=== PATIENT | male | born 1970 | race African-American/Black ===

== ENCOUNTER 2018-11-14 00:31 | Emergency (ER) | payer MEDICAID ==
[~2018-11-14] VITALS: Ht 172.7 cm; Wt 64.0 kg
[2018-11-14 04:42] VITALS: BP 112/68
== END 2018-11-14 04:45 | disposition home or self-care (01) ==
LOC: ER 00:31
DX: R22.42 Localized swelling, mass and lump, left lower limb (principal); M25.572 Pain in left ankle and joints of left foot
CPT/HCPCS: 73610; 99283

== ENCOUNTER 2019-03-15 01:26 | Emergency (ER) | payer MEDICAID, OTHER ==
[~2019-03-15] VITALS: Ht 170.2 cm; Wt 59.7 kg
[2019-03-15 06:14] VITALS: BP 97/64
== END 2019-03-15 06:17 | disposition home or self-care (01) ==
LOC: ER 01:26
DX: S40.862A Insect bite (nonvenomous) of left upper arm, initial encounter (principal); S40.861A Insect bite (nonvenomous) of right upper arm, initial encounter; S80.862A Insect bite (nonvenomous), left lower leg, initial encounter; S80.861A Insect bite (nonvenomous), right lower leg, initial encounter; F12.10 Cannabis abuse, uncomplicated; F17.210 Nicotine dependence, cigarettes, uncomplicated; W57.XXXA Bitten or stung by nonvenomous insect and other nonvenomous arthropods, initial encounter; Y93.89 Activity, other specified; Y92.018 Other place in single-family (private) house as the place of occurrence of the external cause
CPT/HCPCS: 99282

== ENCOUNTER 2020-01-28 03:13 | Emergency (ER) | payer MEDICAID, OTHER ==
[~2020-01-28] VITALS: Ht 170.2 cm; Wt 69.0 kg
[2020-01-28] MEDS ORDERED: AZITHROMYCIN 500 MG TABLET PO ONE (04:30)
[2020-01-28] MEDS ORDERED: LIDOCAINE HCL 1% 20ML VIAL (Pyxis) INJ INFIL ONE (04:30)
[2020-01-28] MEDS ORDERED: CEFTRIAXONE SODIUM 250 MG/VIAL IM ONE (04:30)
[2020-01-28 05:42] VITALS: BP 125/91
== END 2020-01-28 07:01 | disposition home or self-care (01) ==
LOC: ER 03:13
DX: A64 Unspecified sexually transmitted disease (principal); F12.10 Cannabis abuse, uncomplicated; E78.00 Pure hypercholesterolemia, unspecified
CPT/HCPCS: 96372; 99283; J0696; J3490

== ENCOUNTER 2020-04-21 10:42 | Emergency (ER) | payer MEDICAID ==
[~2020-04-21] VITALS: Ht 172.7 cm; Wt 68.0 kg
[2020-04-21 10:50] VITALS: BP 143/89
[2020-04-21] MEDS ORDERED: AZITHROMYCIN 500 MG TABLET PO ONE (11:15)
[2020-04-21] MEDS ORDERED: CEFTRIAXONE SODIUM 250 MG/VIAL IM ONE (11:15)
[2020-04-21 12:34] LABS: CLARITY URINE CLEAR (CLEAR); COLOR URINE YELLOW (YELLOW); KETONES URINE NEGATIVE (NEGATIVE); LEUKOCYTE ESTERASE URINE 1+ (NEGATIVE); NITRITE URINE NEGATIVE (NEGATIVE); OCCULT BLOOD URINE 3+ (NEGATIVE); PH URINE 5.5 (4.5-8.0); PROTEIN URINE NEGATIVE (NEGATIVE); SPECIFIC GRAVITY URINE 1.023 (1.005-1.030); UROBILINOGEN URINE 0.2 E.U./dL (0.2-1.0)
== END 2020-04-21 11:30 | disposition home or self-care (01) ==
LOC: ER 10:42
DX: N34.2 Other urethritis (principal); F12.10 Cannabis abuse, uncomplicated
CPT/HCPCS: 81003; 96372; 99283; J0696

== ENCOUNTER 2020-12-31 07:39 | Emergency (ER) | payer MEDICAID ==
[~2020-12-31] VITALS: Ht 175.3 cm; Wt 65.0 kg
[2020-12-31] MEDS ORDERED: ACETAMINOPHEN 325MG TABLET PO ONE (08:15)
[2020-12-31] MEDS ORDERED: FLUORESCEIN SODIUM 1MG/STRIP LEFTEYE ONE (09:00)
[2020-12-31] MEDS ORDERED: AMOX-424 MT (09:06)
[2020-12-31] MEDS ORDERED: OXYMETAZOLINE HCL NASAL SPRAY 15ML BOTHNSTRLS SCH (09:15)
[2020-12-31 09:35] VITALS: BP 137/72
== END 2020-12-31 09:36 | disposition home or self-care (01) ==
LOC: ER 07:39
DX: J32.9 Chronic sinusitis, unspecified (principal); F12.10 Cannabis abuse, uncomplicated; R09.81 Nasal congestion; R51.9 Headache, unspecified
CPT/HCPCS: 99284

== ENCOUNTER 2021-04-12 20:58 | Emergency (ER) | payer MEDICAID ==
[~2021-04-12] VITALS: Ht 175.3 cm; Wt 57.3 kg
[~2021-04-12 20:58] MED LIST: ASPI-1160 PO; ATOR40TA70 MT; MULT-1146 MT
[2021-04-12] MEDS ORDERED: IBUPROFEN 600MG TABLET PO ONE (22:45)
[2021-04-12 22:50] VITALS: BP 150/82
== END 2021-04-12 23:00 | disposition home or self-care (01) ==
LOC: ER 20:58
DX: R51.9 Headache, unspecified (principal); G51.0 Bell's palsy; F12.10 Cannabis abuse, uncomplicated; I10 Essential (primary) hypertension; E78.00 Pure hypercholesterolemia, unspecified
CPT/HCPCS: 99282

== ENCOUNTER 2021-04-17 17:55 | Emergency (ER) | payer MEDICAID ==
[~2021-04-17] VITALS: Ht 175.3 cm; Wt 60.0 kg
[2021-04-17 17:59] VITALS: BP 115/84
[2021-04-17] MEDS ORDERED: ATOR40TA70 MT (20:50)
[2021-04-17] MEDS ORDERED: ASPI-1497 MT (20:51)
== END 2021-04-17 21:23 | disposition home or self-care (01) ==
LOC: ER 17:55
DX: Z76.0 Encounter for issue of repeat prescription (principal); E78.00 Pure hypercholesterolemia, unspecified; I10 Essential (primary) hypertension; Z98.890 Other specified postprocedural states; Z79.82 Long term (current) use of aspirin
CPT/HCPCS: 99281; 99283

== ENCOUNTER 2021-06-02 08:41 | Emergency (ER) | payer MEDICAID ==
[~2021-06-02] VITALS: Ht 175.3 cm; Wt 58.0 kg
[~2021-06-02 08:41] MED LIST changes: +ASPI-1497 MT
[2021-06-02 08:53] VITALS: BP 129/90
[2021-06-02] MEDS ORDERED: CEFTRIAXONE SODIUM 500 MG/VIAL IM ONE (09:15)
[2021-06-02] MEDS ORDERED: AZITHROMYCIN 500 MG TABLET PO ONE (09:15)
[2021-06-05 04:07] LABS: NEISSERIA GONORRHOEAE NAA Negative (Negative)
== END 2021-06-02 10:44 | disposition home or self-care (01) ==
LOC: ER 08:41
DX: Z11.3 Encounter for screening for infections with a predominantly sexual mode of transmission (principal); Z20.2 Contact with and (suspected) exposure to infections with a predominantly sexual mode of transmission; E78.00 Pure hypercholesterolemia, unspecified; I10 Essential (primary) hypertension; Z79.82 Long term (current) use of aspirin
CPT/HCPCS: 86592; 87491; 87591; 96372; 99283; J0696

== ENCOUNTER 2021-06-20 18:22 | Emergency (ER) | payer MEDICAID ==
[~2021-06-20] VITALS: Ht 175.3 cm; Wt 67.0 kg
[2021-06-20 18:28] VITALS: BP 109/81
== END 2021-06-20 19:16 | disposition left against medical advice (07) ==
LOC: ER 18:22
DX: E78.00 Pure hypercholesterolemia, unspecified (principal); G51.0 Bell's palsy; F12.10 Cannabis abuse, uncomplicated; F17.210 Nicotine dependence, cigarettes, uncomplicated
CPT/HCPCS: 99281

== ENCOUNTER 2022-01-19 09:39 | Emergency (ER) | payer MEDICAID, OTHER ==
[~2022-01-19] VITALS: Ht 172.7 cm; Wt 66.0 kg
[2022-01-19 09:53] VITALS: BP 118/75
[2022-01-19] MEDS ORDERED: ATOR40TA70 MT (11:04)
[2022-01-19] MEDS ORDERED: ASPI-1497 MT (11:04)
== END 2022-01-19 11:29 | disposition home or self-care (01) ==
LOC: ER 09:39
DX: Z76.0 Encounter for issue of repeat prescription (principal); E78.00 Pure hypercholesterolemia, unspecified; E11.9 Type 2 diabetes mellitus without complications; G51.0 Bell's palsy; Z79.82 Long term (current) use of aspirin
CPT/HCPCS: 99283

== ENCOUNTER 2022-03-09 22:32 | Emergency (ER) | payer MEDICAID, OTHER ==
[~2022-03-09] VITALS: Ht 172.7 cm; Wt 61.0 kg
[2022-03-09] MEDS ORDERED: LIDOCAINE 5% PATCH TOP SCH (23:15)
[2022-03-09] MEDS ORDERED: KETOROLAC 60MG/2ML VIAL IM ONE (23:15)
[2022-03-09] MEDS ORDERED: ACETAMINOPHEN 325MG TABLET PO ONE (23:15)
[2022-03-10] MEDS ORDERED: TOPUD PO (00:07)
[2022-03-10] MEDS ORDERED: LIDO1ADH23 TP (00:07)
[2022-03-10] MEDS ORDERED: IBUP-2028 MT (00:07)
[2022-03-10 00:26] VITALS: BP 112/78
== END 2022-03-10 00:29 | disposition home or self-care (01) ==
LOC: ER 22:32
DX: M25.511 Pain in right shoulder (principal); M75.21 Bicipital tendinitis, right shoulder; E78.00 Pure hypercholesterolemia, unspecified; F12.10 Cannabis abuse, uncomplicated; Z79.899 Other long term (current) drug therapy
CPT/HCPCS: 73030; 96372; 99283; J1885

== ENCOUNTER 2022-03-28 19:56 | Emergency (ER) | payer MEDICAID, OTHER ==
[~2022-03-28] VITALS: Ht 177.8 cm; Wt 58.8 kg
[~2022-03-28 19:56] MED LIST changes: +IBUP-2028 MT; +LIDO1ADH23 TP; +TOPUD PO
[2022-03-28] MEDS ORDERED: CYCL10TA21 MT (23:07)
[2022-03-28] MEDS ORDERED: NAPR-1176 MT (23:07)
[2022-03-28] MEDS ORDERED: HYDROCODONE/ACETAMINOPHEN 5/325MG TABLET PO ONE (23:15)
[2022-03-28] MEDS ORDERED: IBUPROFEN 600MG TABLET PO ONE (23:15)
[2022-03-28 23:26] VITALS: BP 122/79
== END 2022-03-28 23:25 | disposition home or self-care (01) ==
LOC: ER 19:56
DX: M25.511 Pain in right shoulder (principal); E78.00 Pure hypercholesterolemia, unspecified; G51.0 Bell's palsy; F12.10 Cannabis abuse, uncomplicated
CPT/HCPCS: 99283

== ENCOUNTER 2022-04-03 05:43 | Emergency (ER) | payer MEDICAID ==
[~2022-04-03] VITALS: Ht 175.3 cm; Wt 62.2 kg
[~2022-04-03 05:43] MED LIST changes: +CYCL10TA21 MT; +NAPR-1176 MT
[2022-04-03 05:50] VITALS: BP 128/81
[2022-04-04] MEDS ORDERED: IBUP-2029 MT (18:15)
[2022-04-04] MEDS ORDERED: HYDR-4001 MT (18:15)
== END 2022-04-03 07:51 | disposition left against medical advice (07) ==
LOC: ER 05:43
DX: Z53.21 Procedure and treatment not carried out due to patient leaving prior to being seen by health care provider (principal)

== ENCOUNTER 2022-04-04 14:23 | Emergency (ER) | payer MEDICAID ==
[~2022-04-04] VITALS: Ht 177.8 cm; Wt 76.0 kg
[2022-04-04] MEDS ORDERED: IBUPROFEN 600MG TABLET PO ONE (16:45)
[2022-04-04] MEDS ORDERED: MORPHINE SULFATE 10 MG/ML CPJ IM ONE (18:15)
[2022-04-04] MEDS ORDERED: HYDR-4001 MT (18:15)
[2022-04-04] MEDS ORDERED: IBUP-2029 MT (18:15)
[2022-04-04 18:21] VITALS: BP 116/67
== END 2022-04-04 19:23 | disposition home or self-care (01) ==
LOC: ER 14:23
DX: S82.252A Displaced comminuted fracture of shaft of left tibia, initial encounter for closed fracture (principal); S82.452A Displaced comminuted fracture of shaft of left fibula, initial encounter for closed fracture; E78.00 Pure hypercholesterolemia, unspecified; G51.0 Bell's palsy; Z79.82 Long term (current) use of aspirin; F12.10 Cannabis abuse, uncomplicated; W01.0XXA Fall on same level from slipping, tripping and stumbling without subsequent striking against object, initial encounter; Y93.89 Activity, other specified; Y92.018 Other place in single-family (private) house as the place of occurrence of the external cause
CPT/HCPCS: 29505; 73590; 73610; 96372; 99284; J2270

== ENCOUNTER 2022-04-05 19:33 | Emergency (ER) | payer MEDICAID ==
[~2022-04-05] VITALS: Ht 175.3 cm; Wt 61.0 kg
[~2022-04-05 19:33] MED LIST changes: +HYDR-4001 MT; +IBUP-2029 MT
[2022-04-06] MEDS ORDERED: HYDR-4009 MT (01:28)
[2022-04-06] MEDS ORDERED: HYDROCODONE/ACETAMINOPHEN 5/325MG TABLET PO ONE (01:30)
[2022-04-06 01:56] VITALS: BP 125/86
[2022-04-06] MEDS ORDERED: HYDR-4001 MT ×2 (11:49→11:51)
== END 2022-04-06 01:54 | disposition home or self-care (01) ==
LOC: ER 19:33
DX: G89.29 Other chronic pain (principal); M79.662 Pain in left lower leg; Z48.00 Encounter for change or removal of nonsurgical wound dressing; E78.00 Pure hypercholesterolemia, unspecified; E11.9 Type 2 diabetes mellitus without complications; G51.0 Bell's palsy; F12.10 Cannabis abuse, uncomplicated; Z79.82 Long term (current) use of aspirin
CPT/HCPCS: 29505; 99283

== ENCOUNTER 2022-05-31 07:59 | Emergency (ER) | payer MEDICAID, OTHER ==
[~2022-05-31] VITALS: Ht 175.3 cm; Wt 61.0 kg
[~2022-05-31 07:59] MED LIST changes: +HYDR-4009 MT
[2022-05-31] MEDS ORDERED: IBUPROFEN 600MG TABLET PO ONE (08:45)
[2022-05-31 09:27] VITALS: BP 130/91
== END 2022-05-31 09:46 | disposition home or self-care (01) ==
LOC: ER 07:59
DX: M79.605 Pain in left leg (principal); F12.10 Cannabis abuse, uncomplicated; E11.9 Type 2 diabetes mellitus without complications; Z79.899 Other long term (current) drug therapy; Z98.890 Other specified postprocedural states
CPT/HCPCS: 73590; 99283

== ENCOUNTER 2022-07-02 17:20 | Emergency (ER) | payer MEDICAID, OTHER ==
[~2022-07-02] VITALS: Ht 175.3 cm; Wt 59.0 kg
[2022-07-02 17:24] VITALS: BP 107/81
[2022-07-02] MEDS ORDERED: ALBU6.7H3 INH (20:09)
== END 2022-07-02 20:29 | disposition home or self-care (01) ==
LOC: ER 17:20
DX: J40 Bronchitis, not specified as acute or chronic (principal); E78.00 Pure hypercholesterolemia, unspecified; Z20.822 Contact with and (suspected) exposure to COVID-19; Z79.899 Other long term (current) drug therapy
CPT/HCPCS: 87426; 87804; 99283; C9803

== ENCOUNTER 2022-08-18 02:17 | Emergency (ER) | payer MEDICAID, OTHER ==
[~2022-08-18] VITALS: Ht 175.3 cm; Wt 57.8 kg
[~2022-08-18 02:17] MED LIST changes: +ALBU6.7H3 INH
[2022-08-18] MEDS ORDERED: ALBUTEROL (0.083%) 2.5MG/3ML NEB HHN STA (02:53)
[2022-08-18] MEDS ORDERED: ALBU6.7H3 INH (03:11)
[2022-08-18 05:25] VITALS: BP 124/73
[2022-08-18] MEDS ORDERED: ALBUTEROL (0.083%) 2.5MG/3ML NEB ONE (05:46)
== END 2022-08-18 06:36 | disposition home or self-care (01) ==
LOC: ER 02:17
DX: J45.901 Unspecified asthma with (acute) exacerbation (principal); F12.10 Cannabis abuse, uncomplicated; J44.9 Chronic obstructive pulmonary disease, unspecified; Z79.899 Other long term (current) drug therapy
CPT/HCPCS: 93005; 94640; 99283; Z7610

== ENCOUNTER 2022-08-21 21:42 | Emergency (ER) | payer MEDICAID, OTHER ==
[~2022-08-21] VITALS: Ht 175.3 cm; Wt 58.4 kg
[2022-08-21 21:53] VITALS: BP 123/82
== END 2022-08-22 08:56 | disposition left against medical advice (07) ==
LOC: ER 21:42
DX: Z53.21 Procedure and treatment not carried out due to patient leaving prior to being seen by health care provider (principal)

== ENCOUNTER 2023-01-23 15:40 | Emergency (ER) | payer OTHER ==
[~2023-01-23] VITALS: Ht 172.7 cm; Wt 61.0 kg
[2023-01-23] MEDS ORDERED: METHYLPREDNISOLONE SOD SUCC 125MG/2ML (ACT-O-VIAL) IV NR (15:52)
[2023-01-23] MEDS ORDERED: IPRATROPIUM BROMIDE (0.02%) 0.5MG/2.5ML NEB HHN STA (15:52)
[2023-01-23] MEDS ORDERED: ALBUTEROL (0.083%) 2.5MG/3ML NEB HHN STA ×2 (15:52→19:58)
[2023-01-23] MEDS ORDERED: IPRATROPIUM BROMIDE (0.02%) 0.5MG/2.5ML NEB HHN NR (15:52)
[2023-01-23] MEDS ORDERED: ALBUTEROL (0.083%) 2.5MG/3ML NEB HHN NR (15:52)
[2023-01-23] MEDS ORDERED: METHYLPREDNISOLONE SOD SUCC 125MG/2ML (ACT-O-VIAL) IV STA (15:52)
[2023-01-23] MEDS ORDERED: ASPIRIN 81MG TABLET PO NR (16:00)
[2023-01-23] MEDS ORDERED: ASPIRIN 81MG TABLET PO ONE (16:00)
[2023-01-23] MEDS ORDERED: ALBUTEROL (0.5%) 2.5MG/0.5ML NEB HHN ONE (18:17)
[2023-01-23] MEDS ORDERED: ALBUTEROL (0.083%) 2.5MG/3ML NEB ONE (18:18)
[2023-01-23 18:20] VITALS: PULSE 112; RESP 28
[2023-01-23 18:22] LABS: BASOPHILS % 0.2 % (0.0-2.0); EOSINOPHILS % 3.5 % (0.0-5.0); HEMATOCRIT. 42.6 % (42.0-52.0); HEMOGLOBIN. 14.2 g/dL (14.0-18.0); LYMPHOCYTES % 7.6 % (20.0-50.0); MEAN CORPUSCULAR HEMOGLOBIN 30.8 pg (28.0-32.0); MEAN CORPUSCULAR HGB CONC 33.3 g/dL (31.0-37.0); MEAN CORPUSCULAR VOLUME 92.3 fL (80.0-94.0); MEAN PLATELET VOLUME 8.1 fl (7.4-10.4); MONOCYTES % 5.6 % (2.0-8.0); NEUTROPHILS % 83.1 % (40.0-76.0); PLATELET 249 x1000/uL (130-400); RED BLOOD CELL COUNT 4.61 mill/uL (4.7-6.1); WHITE BLOOD COUNT 14.7 x1000/uL (4.5-11.0)
[2023-01-23 18:31] LABS: CHLORIDE 107 mEq/L (98-107); INDEX HEMOLYSI 1 (1-3); INDEX ICTERIC 1 (1-4); INDEX LIPEMIC 1 (1-3); POTASSIUM 3.6 mEq/L (3.5-5.1); SODIUM 139 mEq/L (136-145)
[2023-01-23 18:42] LABS: ALANINE AMINOTRANSFERASE 19 IU/L (13-61); ALBUMIN 3.8 g/dL (3.4-5.0); ASPARTATE AMINOTRANSFERASE 17 IU/L (15-37); BILIRUBIN TOTAL 0.3 mg/dL (0.1-1.0); CALCIUM 8.9 mg/dL (8.5-10.1); CARBON DIOXIDE 27 mEq/L (21-32); CREATININE 1.1 mg/dL (0.6-1.3); GLUCOSE 103 mg/dL (70-105); NT PRO B-TYPE NATRIURETIC PEP 107 pg/mL (5-125); PROTEIN TOTAL 7.5 g/dL (6.0-8.3); TROPONIN I HIGH SENSITIVITY 7 ng/L (<78); UREA NITROGEN BLOOD 12 mg/dL (7-21)
[2023-01-23] MEDS ORDERED: P20 MT (19:07)
[2023-01-23] MEDS ORDERED: ALBU6.7H3 INH (19:07)
[2023-01-23] MEDS ORDERED: METHYLPREDNISOLONE SOD SUCC 125MG VIAL IV NR (19:15)
[2023-01-23 20:44] VITALS: PULSE 108; RESP 22; O2SAT 100
[2023-01-23 21:16] VITALS: BP 121/86; PULSE 102; RESP 22; TEMP 98.3
== END 2023-01-23 21:30 | disposition home or self-care (01) ==
LOC: ER 15:40 → CANBEDREQ 01-25 20:26
DX: J45.901 Unspecified asthma with (acute) exacerbation (principal); F12.10 Cannabis abuse, uncomplicated; Z79.899 Other long term (current) drug therapy
CPT/HCPCS: 80053; 83880; 85025; 84484; 36415; 71045; 94640; 93005; 96374; 99285; Z7610 ×7; J2930

== ENCOUNTER 2023-03-15 12:21 | Emergency (ER) | payer OTHER ==
[~2023-03-15] VITALS: Ht 175.3 cm; Wt 64.0 kg
[~2023-03-15 12:21] MED LIST changes: +P20 MT
[2023-03-15 12:37] VITALS: O2SAT 100
[2023-03-15] MEDS ORDERED: DOXY100T2 MT (14:13)
[2023-03-15] MEDS ORDERED: CEFTRIAXONE SODIUM 500 MG/VIAL IM ONE (14:15)
[2023-03-15 14:40] VITALS: BP 136/51; PULSE 82; RESP 16; TEMP 98.4
[2023-03-15 15:29] LABS: CLARITY URINE CLEAR (CLEAR); COLOR URINE YELLOW (YELLOW); GLUCOSE URINE NEGATIVE (NEGATIVE); KETONES URINE NEGATIVE (NEGATIVE); LEUKOCYTE ESTERASE URINE NEGATIVE (NEGATIVE); NITRITE URINE NEGATIVE (NEGATIVE); OCCULT BLOOD URINE NEGATIVE (NEGATIVE); PH URINE 5.5 (4.5-8.0); PROTEIN URINE NEGATIVE (NEGATIVE); SPECIFIC GRAVITY URINE 1.026 (1.005-1.030)
[2023-03-18 19:06] LABS: CHLAMYDIA TRACHOMATIS NAA Negative (Negative); NEISSERIA GONORRHOEAE NAA Negative (Negative)
[2023-03-19 04:07] LABS: HIV SCREEN 4G Non Reactive (Non Reactive)
== END 2023-03-15 14:41 | disposition home or self-care (01) ==
LOC: ER 12:21
DX: Z11.3 Encounter for screening for infections with a predominantly sexual mode of transmission (principal)
CPT/HCPCS: 99283; 86592; 87491; 87591; 81003; 87389; 96372; J0696

== ENCOUNTER 2023-07-22 11:48 | Emergency (ER) | payer OTHER ==
[~2023-07-22] VITALS: Ht 172.7 cm; Wt 68.0 kg
[~2023-07-22 11:48] MED LIST changes: +DOXY100T2 MT
[2023-07-22 11:57] VITALS: BP 126/84; PULSE 93; RESP 18; TEMP 98; O2SAT 97
[2023-07-22] MEDS ORDERED: BACITRACIN ZINC OINT UDPKT TOP ONE (13:15)
[2023-07-22] MEDS ORDERED: TETANUS, DIPHTHERIA, PERTUSSIS VAC/PF 0.5ML (>10YR OLD) IM ONE ×2 (13:15→16:15)
[2023-07-22] MEDS ORDERED: LIDOCAINE HCL/PF 1% 10 MG/ML 5ML VIAL INFIL ONE (13:15)
[2023-07-22] MEDS ORDERED: BACITRACIN ZINC OINT UDPKT TOP NR (16:15)
[2023-07-22] MEDS ORDERED: LIDOCAINE HCL/PF 1% 10 MG/ML 5ML VIAL INFIL NR (16:15)
[2023-07-22] MEDS ORDERED: AMOX1TAB16 MT (17:31)
== END 2023-07-22 17:50 | disposition home or self-care (01) ==
LOC: ER 11:48
DX: L03.011 Cellulitis of right finger (principal); J45.909 Unspecified asthma, uncomplicated; F12.90 Cannabis use, unspecified, uncomplicated; Z98.890 Other specified postprocedural states
CPT/HCPCS: 90715; 10060; 90471; 99283; J3490; Z7610 ×2

== ENCOUNTER 2025-01-16 07:47 | Emergency (ER) | payer OTHER ==
[~2025-01-16] VITALS: Ht 172.7 cm; Wt 64.0 kg
[~2025-01-16 07:47] MED LIST changes: +AMOX1TAB16 MT
[2025-01-16 07:52] VITALS: O2SAT 99
[2025-01-16] MEDS: LIDOCAINE HCL 1% 20ML VIAL INFIL ONE (08:41)
[2025-01-16] MEDS ORDERED: DOXY-461 MT (09:07)
[2025-01-16 09:40] VITALS: BP 116/76; PULSE 78; RESP 18; TEMP 36.7; O2SAT 100
== END 2025-01-16 09:41 | disposition home or self-care (01) ==
LOC: ER 07:47
DX: L02.415 Cutaneous abscess of right lower limb (principal); J45.909 Unspecified asthma, uncomplicated; Z79.82 Long term (current) use of aspirin; Z79.899 Other long term (current) drug therapy
CPT/HCPCS: 10060; 99283; J2003; Z7610 ×5

== ENCOUNTER 2025-01-18 10:23 | Emergency (ER) | payer OTHER ==
[~2025-01-18] VITALS: Ht 172.7 cm; Wt 65.0 kg
[~2025-01-18 10:23] MED LIST changes: +DOXY-461 MT
[2025-01-18 10:24] VITALS: O2SAT 99
[2025-01-18 10:31] VITALS: BP 122/77; PULSE 88; RESP 18; TEMP 36.9; O2SAT 100
[2025-01-18] MEDS ORDERED: BO1 TP (10:49)
== END 2025-01-18 10:54 | disposition home or self-care (01) ==
LOC: ER 10:23
DX: L02.415 Cutaneous abscess of right lower limb (principal); J45.909 Unspecified asthma, uncomplicated; F12.90 Cannabis use, unspecified, uncomplicated; Z79.899 Other long term (current) drug therapy
CPT/HCPCS: 99282